=== PATIENT | male | born 1945 | race Caucasian/White ===

== ENCOUNTER → 2019-03-04 | Outpatient (CLI) | payer MEDICARE, SELFPAY ==
[2019-03-04 11:45] LABS: PSA,Total - Annual Screen 4.29 ng/mL (0.00-4.00)
== END | disposition home or self-care (01) ==
PROVIDERS: Family Provider Family Medicine; PCP Family Medicine; Referring Provider Urology; Visit Provider Urology
DX: Z12.5 Encounter for screening for malignant neoplasm of prostate (principal)
CPT/HCPCS: 36415; 84153; G0103

== ENCOUNTER → 2020-11-26 09:26 | Outpatient (CLI) | payer MEDICARE, SELFPAY ==
[2020-11-26 10:52] LABS: PSA,Total- Diagnostic 1.77 ng/mL (0.0-4.0)
== END ==
PROVIDERS: PCP Family Medicine; Referring Provider Urology; Visit Provider Urology
DX: R97.20 Elevated prostate specific antigen [PSA] (principal)
CPT/HCPCS: 36415; 84153

== ENCOUNTER → 2021-12-21 | Outpatient (CLI) | payer MEDICARE, SELFPAY ==
[2021-12-21 11:55] LABS: PSA,Total- Diagnostic 1.98 ng/mL (0.0-4.0)
== END | disposition home or self-care (01) ==
LOC: LAB 09:52
PROVIDERS: PCP Family Medicine; Referring Provider Urology; Visit Provider Urology
DX: N40.1 Benign prostatic hyperplasia with lower urinary tract symptoms (principal)
CPT/HCPCS: 36415; 84153

== ENCOUNTER 2022-01-13 05:41 | Day surgery (SDC) | payer MEDICARE, SELFPAY ==
--- NOTE | 2022-01-07 08:32 | EKG12_ITS ---
Test Reason : PRE OP Blood Pressure : / mmHG Vent. Rate : 088 BPM Atrial Rate : 088 BPM P-R Int : 252 ms QRS Dur : 092 ms QT Int : 380 ms P-R-T Axes : 066 008 049 degrees QTc Int : 459 ms Sinus rhythm with 1st degree A-V block with occasional Premature ventricular complexes Septal infarct , age undetermined Abnormal ECG Confirmed by GABO DE LEON, [place] ([id number]), features editor KHUSHI MARSHALL ([id number]) on 01/10/2022 9:58:43 AM Referred By: Eloy Hutton Confirmed By:CORINNE AYON MD
[2022-01-07 09:52] LABS: Hematocrit 44.2 % (40-54); Hemoglobin 14.7 g/dL (13.0-16.5); Mean Corp Hgb Conc 33.3 g/dL (32-36); Mean Corpuscular Hgb 32.6 pg (27.0-32.0); Mean Platelet Vol. 11.7 fl (6.2-12.0); Platelet Count 205 K/mm3 (150-450); RBC Distribution Width CV 12.4 % (11.6-14.6); RBC Distribution Width SD 44.7 fl (35.1-43.9); Red Blood Count 4.51 M/mm3 (4.6-6.2); White Blood Count 6.3 K/mm3 (4.4-11.0)
[2022-01-07 10:08] LABS: Anion Gap 5 (5-15); BUN 28 mg/dL (7-18); BUN/Creat Ratio 29.5 RATIO (10-20); Calcium,Total 8.6 mg/dL (8.5-10.1); Chloride 107 mmol/L (98-107); Creatinine, Serum 0.95 mg/dL (0.70-1.30); EST Glomerular Filtration Rate 82 mL/min (>60); Est Glom Filt Rate - Afr Amer 99 mL/min (>60); Glucose 110 mg/dL (74-106); Potassium 4.4 mmol/L (3.5-5.1); Sodium Level 140 mmol/L (136-145)
[2022-01-13 06:27] VITALS: BP 151/70; PULSE 83; RESP 16; TEMP 37.1; O2SAT 97; BMI 29.7
[2022-01-13] MEDS: Lactated Ringers 1,000 ML 15 ML IV (06:29)
--- NOTE | 2022-01-13 06:54 | HP.PCM_ITS ---
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 Is patient in pain?: No Allergies No Known Allergies Allergy (Verified 12/28/21 13:15) Medications aspirin 81 mg tablet,delayed release 81 mg PO DAILY 12/28/21 [History Confirmed 12/28/21] finasteride 5 mg tablet 5 mg PO DAILY 12/28/21 [History Confirmed 12/28/21] glucosamine-chondroitin 250 mg-200 mg tablet 2 tab PO DAILY tab 12/28/21 [History Confirmed 12/28/21] [facility] Medical History History of brain damage History of TIA (transient ischemic attack) Surgical History (Updated 12/28/21 @ 13:21 by Mima Monday) History of craniotomy History of hernia repair Family History Father Diabetes Brother Diabetes Social History (Updated 12/28/21 @ 13:18 by Mima Monday) Smoking Status: Never smoker alcohol intake: never substance use type: does not use HPI HPI HPI: DINORA CLEMENS, is a 76 M who presents to the office today for discussion of right groin bulging. Patient reports that this is been present for years. Patient is had left inguinal hernia repair in the past. Patient reports that he is not having any nausea or vomiting. ROS General General: No weight change, appetite, fatigue, colon cancer, breast cancer or weakness HEENT HEENT: No difficulty swallowing, eye injury, eye surgery, swollen glands or hoarseness Endo Endocrine: No thyroid disease, diabetes mellitus, thyroid cancer, Hair loss, heat intolerance or cold intolerance Skin Skin: No rash or changing moles Musc Musculoskeletal: No back problems, arthritis, rheumatoid arthritis, gout or joint pain Cardio Cardiovascular: No murmur, pacemaker, heart disease, atrial fibrillation, high blood pressure, heart attack, heart stent, palpitations, shortness of breat with exertion or chest pain Psych Psychiatric: No depression, anxiety or hearing voices Resp Respiratory: No shortness of breath, Yes sleep apnea, No cough, No COPD, No asthma, No emphysema and No wheezing Gastro Gastrointestinal: Yes abdominal pain, No nausea or vomiting, No diarrhea, No constipation, No blood in stool, No acid reflux, No hemorrhoids, No ulcers, No gallbladder problem and No black,tarry stools Dmaon Hematologic: No blood thinners, No blood disorders, No bleeding, No anemia and No blood clots Neuro Neurologic: No system reviewed and no additional complaints, except as documented, No as per HPI, No abnormal gait, No abnormal hearing, No abnormal movements, No abnormal speech, No behavioral changes, No burning sensations, No confusion, No convulsions, No disequilibrium, No dizziness, No localized weakness, No frequent falls, No headache(s), No lack of coordination, No loss of vision, No memory loss, No numbness, No other visual disturbances, No radicular pain, No restless legs, No sensory deficit, No syncope, No tingling, No tremor(s), No weakness and Yes other (Hx of TIA) Exam Const General: cooperative Orientation: alert and oriented x3 HENMT Head: normal to inspection Neck Neck: normal visual inspection and full ROM Chest Chest palpation & inspection: normal inspection of the chest Resp Effort & Inspection: normal respiratory effort Auscultation: clear to auscultation bilaterally Cardio Rate: regular rate Rhythm: regular rhythm GI Inspection: non-distended Palpation: soft, hernia indirect inguinal on the right and nontender Skin General: no rashes or lesions noted Neuro General: patient alert and patient oriented x3 Extrem General: full ROM Psych Appearance: grossly normal Mental Status: mental status grossly normal Assessment and Plan Assessment and Plan (1) Right inguinal hernia: Status: Acute Plan - Dr. Eloy Hutton MD: The patient has a right inguinal hernia. I discussed robotic assisted laparoscopic inguinal hernia repair with mesh. I discussed mesh placement in detail. I also discussed the risks of the procedure including but not limited to bleeding, infection, injury to spermatic cord or bowel or bladder. Patient understands the risks and is willing proceed. Eloy Hutton MD Pager: [facility] [address] [place] [address], [address] [place] [address] Office: I have seen and reexamined the patient and there are no changes.
--- NOTE | 2022-01-13 07:01 | SUR.PREOP ---
pt stopped taking Aspirin 81 mg on 01/11. Dr Brennen rodriguez.
[2022-01-13] MEDS: Cefazolin 2 GM in 0.9% Normal Saline 100 ML IV (07:37)
[2022-01-13 08:55] VITALS: BP 151/70; BP 156/92; PULSE 95; RESP 16; TEMP 36.9; O2SAT 94
[2022-01-13 09:00] VITALS: BP 147/90; BP 151/70; PULSE 96; RESP 16; O2SAT 95
--- NOTE | 2022-01-13 09:03 | PCM.OPRPT ---
Problems Associated Problem List Diagnoses (1) Right inguinal hernia: Report of Operation Date of Procedure: 01/13/22 Pre-Operative Diagnosis: Right inguinal hernia Post-Operative Diagnosis: Right inguinal hernia Surgery/Procedure Performed:: Robotic assisted laparoscopic right inguinal hernia repair with mesh Description of Procedure: Patient was brought back to the operating room and general anesthesia was induced. The abdomen was prepped and draped in usual sterile fashion. A midline incision was made superior to the umbilicus and deepened to the fascia was was elevated and a Veress needle was placed. A drop test was performed and then the abdomen was insufflated to 15 mmHg. Veress needle was removed and a port was placed. Camera is placed into the abdomen and there were no injuries from entry. Patient was placed in Trendelenburg position and a port was placed in the right lateral abdomen and the left lateral abdomen under direct visualization. The robot was docked. An incision was made in the peritoneum in the right inguinal region and deepened using blunt and electrocautery dissection. The hernia sac was reduced and its adhesions were lysed. Next a 10 x 15 cm ProGrip mesh was placed into the right groin and unfolded completely covering the hernia defect. The peritoneum was reapproximated using a running 3 OV lock suture. There is a small hole in the peritoneum which was closed with 3-0 Vicryl suture. The peritoneum completely cover the mesh to the end the procedure. Next the ports were removed and the abdomen was allowed to desufflate. The incisions were injected with local anesthetic and closed with interrupted 4-0 Monocryl suture and Steri-Strips and bandages. Scrotum was checked at the end of case and contained both testicles. Patient was then awoken and taken to PACU in stable condition. Grafts/Implants Used: ProGrip mesh Admit VTE Documentation VTE Mechan Device Prophylaxis: SCD's
--- NOTE | 2022-01-13 09:06 | EX.PCM.DISCH ---
Discharge Instructions Procedure Hernia Diet Discharge Diet: Light diet - advance as tolerated Activity Discharge Activity: May Not Drive (for 2-3 days or while taking narcotic pain meds.) and May Shower (with the bandage in place 1-2 days after surgery.) Lifting Restrictions: 20 pounds for 6 weeks. No heavy exertion Additional Activity Instructions:: Climbing stairs is fine, walking is encouraged. Sitting in bed may be uncomfortable. Sitting up using your lateral muscles (sitting up sideways) is usually more comfortable. Do not drive, work heavy equipment of sign legal documents for 24 hours. If your hernia repair was an inguinal repair, you may have scrotal swelling, an ice pack and/or athletic support can provide more comfort. Pain medications may cause nausea, you should typically eat light foods as you take your pain medications. Pain medications may also cause constipation. If you have difficulty with this, discuss with your doctor. Dressing / Incision Call your doctor if your incision/area has: Continuous Slow Oozing, Sudden Increased Bleeding, Increased Pain/ Swelling, Increased Redness and Foul Smelling Discharge Call your doctor if you observe: Fever of 101 or Higher Suture Line Care: Avoid Pulling/Pushing and Avoid Pinching/Bending Remove Dressing in: 2 days (Remove clear bandages in 2 days, remove Steri-Strips in 7 to 10 days.) Cleanse incision/area with: Soap & Water Follow Up Care Please Follow Up With: Eloy Hutton MD When: Please call to schedule 2 week follow up appointment. [phone] Test Results: Test results from this visit will be discussed in further detail at your follow-up appointment, if applicable. Discharge Plan Admission Attending Provider: Eloy Hutton Primary Care Provider: Peña Farmer Discharge Orders/Prescriptions Prescriptions: New oxycodone-acetaminophen [Percocet] 5-325 mg tablet 1 tab PO Q6H PRN (Reason: pain) 5 Days Qty: 10 RF: 0 No Action aspirin [Adult Aspirin Regimen] 81 mg tablet,delayed release (DR/EC) 81 mg PO DAILY RF: 0 finasteride 5 mg tablet 5 mg PO DAILY RF: 0 glucosamine-chondroitin [Osteo Bi-Flex] 250-200 mg tablet 2 tab PO DAILY RF: 0 Referrals / Follow Up: Peña Farmer MD [Primary Care Provider] - Disposition Disposition (needs filled in before D/C Order can be placed): Home, Self Care
[2022-01-13 09:15] VITALS: BP 149/80; BP 151/70; PULSE 77; RESP 16; O2SAT 93
[2022-01-13 09:21] VITALS: BP 129/83; BP 151/70; PULSE 83; RESP 16; TEMP 36.9; O2SAT 91
[2022-01-13 09:58] VITALS: BP 143/76; BP 151/70; PULSE 74; RESP 16; TEMP 36.4; O2SAT 93
== END 2022-01-13 10:20 | disposition home or self-care (01) ==
LOC: SDC 05:42 → AC 05:43
PROVIDERS: Anesthesiology; PCP Family Medicine; Referring Provider Surgery; Visit Provider Surgery
PROC: (CPT 49650; principal; 2022-01-13 07:10)
DX: K40.90 Unilateral inguinal hernia, without obstruction or gangrene, not specified as recurrent (principal); Z86.73 Personal history of transient ischemic attack (TIA), and cerebral infarction without residual deficits; Z79.82 Long term (current) use of aspirin
CPT/HCPCS: 49650; S2900; 00840; 36415; 80048; 85027; 93005; J7120

== ENCOUNTER → 2022-12-26 | Outpatient (CLI) | payer MEDICARE, SELFPAY ==
[2022-12-26 11:34] LABS: PSA,Total - Annual Screen 1.74 ng/mL (0.00-4.00)
== END | disposition home or self-care (01) ==
LOC: LAB 09:37
PROVIDERS: PCP Family Medicine; Visit Provider Registered Nurse
DX: Z12.5 Encounter for screening for malignant neoplasm of prostate (principal)
CPT/HCPCS: 36415; 84153; G0103

== ENCOUNTER → 2025-03-20 | Outpatient (CLI) | payer MEDICARE, SELFPAY ==
[2025-03-20 11:12] LABS: PSA,Total - Annual Screen 1.02 ng/mL (0.02-4.00)
== END | disposition home or self-care (01) ==
LOC: LAB 09:52
PROVIDERS: Referring Provider Nurse Practitioner; Visit Provider Nurse Practitioner
DX: Z12.5 Encounter for screening for malignant neoplasm of prostate (principal)
CPT/HCPCS: 36415; 84153; G0103